=== PATIENT | male | born 1985 | race Asian ===

== ENCOUNTER 2019-03-31 18:49 | Emergency (ER) | payer OTHER ==
[~2019-03-31] VITALS: Ht 175.3 cm; Wt 65.8 kg
[2019-03-31] MEDS ORDERED: NORCO 5-325 TA1 EAC1 PO (20:13)
[2019-03-31 20:22] VITALS: BP 122/86
== END 2019-03-31 20:22 | disposition home or self-care (01) ==
LOC: ER 18:49
DX: S40.011A Contusion of right shoulder, initial encounter (principal); R07.89 Other chest pain; V19.88XA Pedal cyclist (driver) (passenger) injured in other specified transport accidents, initial encounter; Y93.89 Activity, other specified; Y92.89 Other specified places as the place of occurrence of the external cause; Y99.8 Other external cause status

== ENCOUNTER 2019-12-29 11:13 | Emergency (ER) | payer OTHER ==
[~2019-12-29] VITALS: Ht 177.8 cm; Wt 65.8 kg
[~2019-12-29 11:13] MED LIST: NORCO 5-325 TA1 EAC1 PO
[2019-12-29] MEDS ORDERED: NOHOMEMEDICATIONS (11:21)
[2019-12-29] MEDS ORDERED: NAPROSYN500 MG PO (12:47)
[2019-12-29] MEDS ORDERED: NORFLEX100 MG PO (12:47)
[2019-12-29 13:01] VITALS: BP 107/69
== END 2019-12-29 13:01 | disposition home or self-care (01) ==
LOC: ER 11:13
DX: M79.602 Pain in left arm (principal); R07.81 Pleurodynia; M54.2 Cervicalgia; M25.552 Pain in left hip; R20.2 Paresthesia of skin; J45.909 Unspecified asthma, uncomplicated; F17.210 Nicotine dependence, cigarettes, uncomplicated; Z79.899 Other long term (current) drug therapy; V49.49XA Driver injured in collision with other motor vehicles in traffic accident, initial encounter; Y93.89 Activity, other specified; Y92.89 Other specified places as the place of occurrence of the external cause; Y99.8 Other external cause status